=== PATIENT | female | born 1960 | race Caucasian/White ===

== ENCOUNTER 2019-04-15 15:51 | Emergency (ER) | payer OTHER ==
--- NOTE | 2019-04-15 16:42 | XRAY Report ---
Reason: ankle pain Procedure Date: 04/15/2019 Accession Number: [id number] / [id number] Procedure: XR - Ankle 3 View LT CPT Code: FULL RESULT: EXAM: LEFT ANKLE RADIOGRAPHY EXAM DATE: 04/15/2019 04:18 PM. CLINICAL HISTORY: Ankle pain. COMPARISON: None available. TECHNIQUE: 3 views. FINDINGS: Bones: The frontal and oblique views suggest the presence of a linear lucency through the distal aspect of the fibula, but the cortices appear intact. There is a V-shaped linear lucency in the calcaneus. Joints: Normal. No effusion. No subluxations. The ankle mortise is normally aligned. Soft Tissues: There is lateral soft tissue swelling. IMPRESSION: 1. There is lateral soft tissue swelling. 2. There is a linear lucency through the distal fibula, but cortex appears intact, equivocal for fracture. 3. There may be a fracture of the posterior calcaneus. RADIA
--- NOTE | 2019-04-15 17:55 | ED Physician Documentation ---
PD HPI LOWER EXT INJURY - Stated complaint Stated Complaint: LFT ANKLE INJ - Chief complaint Chief Complaint: Trauma Ext - History obtained from History obtained from: Patient - History of Present Illness PD HPI LOW EXT INJURY LOCATION: Left, Ankle, Foot Type of injury: Fall (fell from ladder about 4-5 feet and landed onto left heel/foot directly and hard. Denies pain in knee nor back. Paina nd swelling of ankle.) Timing - onset: Today Timing - details: Abrupt onset, Still present Improved by: No: Rest Worsened by: Moving, Palpating, Other (standing) Associated symptoms: Swelling, Discolored (some bruising color developing around ankle). No: Weakness, Numbness Contributing factors: No: Anticoagulated Similar symptoms before: Has not had sx before Recently seen: Not recently seen Review of Systems Constitutional: denies: Fever Skin: denies: Abrasion (s), Laceration (s) Musculoskeletal: reports: Joint swelling. denies: Neck pain, Back pain Neurologic: denies: Head injury PD PAST MEDICAL HISTORY - Past Medical History Cardiovascular: None Respiratory: None Musculoskeletal: None - Present Medications Home Medications: Ambulatory Orders Medication Instructions Recorded Confirmed Oxycodone HCl/Acetaminophen 1 each PO Q6H PRN #20 tablet 04/15/19 [Percocet 5-325 mg Tablet] - Allergies Allergies/Adverse Reactions: Allergies Allergy/AdvReac Type Severity Reaction Status Date / Time No Known Drug Allergies Allergy Verified 04/15/19 15:58 - Living Situation Living Arrangement: reports: At home PD ED PE NORMAL - Vitals Vital signs reviewed: Yes - General General: Alert and oriented X 3, Well developed/nourished, Other (appears in pain) - Back Back: No spinal TTP - Derm Derm: Normal color, Warm and dry - Extremities Extremities: Other (left ankle and heel with swelling, bruising, and tenderness. Swelling is tight and tender. Toes with sensation, color, cap refill, and movement. ) - Neuro Neuro: Alert and oriented X 3, No motor deficit, No sensory deficit Results - Vitals Vitals: Vital Signs - 24 hr 04/15/19 04/15/19 15:57 19:29 Temperature 37.0 C 36.8 C Heart Rate 92 63 Respiratory 18 18 Rate Blood Pressure 132/76 H 143/80 H O2 Saturation 99 98 Oxygen O2 Source Room air - Rads (name of study) left ankle Radiology: Prelim report reviewed (possible calcaneal fracture), EMP read contemporaneously (calcaneal fracture), See rad report ankle CT Radiology: Prelim report reviewed (calcaneal fracture), See rad report Procedures - Splint (location) left ankle Splint applied by: Tech Type of splint: Fiberglass (well padded), Posterior Other: Patient tolerated well, No complications, Neurovascular intact, Crutches provided PD MEDICAL DECISION MAKING - ED course Complexity details: considered differential (swelling around ankle. Has good sensation/movement and color of toes. ), d/w patient Departure - Departure Disposition: Home, Self Care Clinical Impression: Fall from ladder Qualifiers: Encounter type: initial encounter Qualified Code(s): W11.XXXA - Fall on and from ladder, initial encounter Calcaneal fracture Qualifiers: Encounter type: initial encounter Calcaneus location: body Fracture type: closed Fracture alignment: nondisplaced Laterality: left Qualified Code(s): S92.015A - Nondisplaced fracture of body of left calcaneus, initial encounter for closed fracture Condition: Stable Record reviewed to determine appropriate education?: Yes Instructions: ED Fx Foot Follow-Up: Trace Bernstein MD [Provider Admit Priv/Credential] - Prescriptions: Oxycodone HCl/Acetaminophen [Percocet 5-325 mg Tablet] 1 each PO Q6H PRN #20 tablet PRN Reason: pain Comments: Keep the splint on. Elevate rest and ice the foot and ankle often the next few days. Crutches for nonweightbearing. You can get a knee scooter instead as you desire. Follow-up with orthopedics later this coming week, call Tuesday for an appointment. This will give time for the swelling to go down and they can reevaluate the ankle. Use some anti-inflammatories such as ibuprofen or naproxen twice daily with food. Add Tylenol or Percocet if needed for pains. Discharge Date/Time: 04/15/19 19:48
[2019-04-15] MEDS ORDERED: IBUPROFEN 600 MG TABLET PO STA (18:02)
[2019-04-15] MEDS ORDERED: oxyCODONE 5 MG TABLET PO STA (18:03)
--- NOTE | 2019-04-15 18:44 | CT Report ---
Reason: ankle/calcaneal fracture on xray Procedure Date: 04/15/2019 Accession Number: [id number] / [id number] Procedure: CT - LOWER EXTREMITY WO - LT CPT Code: FULL RESULT: EXAM: LEFT HEEL CT WITHOUT CONTRAST EXAM DATE: 04/15/2019 06:24 PM. CLINICAL HISTORY: Ankle/calcaneal fracture on xray. COMPARISON: ANKLE 3 VIEW LT 04/15/2019 4:09 PM. TECHNIQUE: Thin-section axial images were acquired of the heel without contrast. Post-processing: Coronal and sagittal reformats. Other: None. In accordance with CT protocol optimization, one or more of the following dose reduction techniques were utilized for this exam: automated exposure control, adjustment of mA and/or KV based on patient size, or use of iterative reconstructive technique. FINDINGS: Bones: Nondisplaced interarticular fracture anterior process calcaneus with extension to the calcaneocuboid articulation. Nondisplaced comminuted fracture is noted of the calcaneus body. Negative for fracture depression. Interarticular extension fracture middle and posterior subtalar joint. Nondisplaced fracture horizontal plane is noted of the sustentaculum talus. Bohler's angle is 32 degrees. Maximum offset calcaneus body comminuted fracture on the axial acquisition is 4 mm. There is mild 18 degree lateral angulation of the fracture apex calcaneus body on the axial acquisition (image 120 series 3). Joints: The joint spaces are preserved. No calcified loose bodies. No large effusion. Musculature: Normal. No fatty atrophy. Other: Small fluid collection posterior recess ankle joint. Extensive edema or contusion lateral ankle. Negative for disruption anterior talofibular ligament or calcaneofibular ligament. Peroneal tendons are intact and without impingement. Flexor tendons are intact. Achilles tendon is within normal limits. IMPRESSION: There is extensive comminuted nondisplaced intra-articular fracture of the anterior process calcaneus, sustentaculum talus and calcaneus body with posterior subtalar joint, anterior subtalar joint, middle subtalar joint and calcaneofibular joint involvement. Mild 18 degrees lateral angulation of the fracture apex. Calcaneus body bohler's angle 32 degrees. RADIA
[2019-04-15] MEDS ORDERED: oxyCODONE/ACET 5/325 Prepack 4 PO STA (19:24)
[2019-04-15 19:30] VITALS: BP 143/80
== END 2019-04-15 19:48 | disposition home or self-care (01) ==
LOC: ED 15:51
DX: S92.015A Nondisplaced fracture of body of left calcaneus, initial encounter for closed fracture (principal); S92.025A Nondisplaced fracture of anterior process of left calcaneus, initial encounter for closed fracture; S92.192A Other fracture of left talus, initial encounter for closed fracture; W11.XXXA Fall on and from ladder, initial encounter
CPT/HCPCS: 29515; 73610; 73700; 99283; A9270

== ENCOUNTER 2020-11-13 13:09 | Outpatient (CLI) | payer OTHER ==
--- NOTE | 2020-11-13 17:00 | XRAY Report ---
PROCEDURE: Lumbar Spine 2 View INDICATIONS: LOW BACK PAIN TECHNIQUE: 2 views of the lumbar spine were acquired. COMPARISON: None. FINDINGS: Bones: 5 [id number]-[id number] vertebrae are present. There is normal bony alignment. There are age-indet erminate anterior compression fractures of T12 and L1, most pronounced at T12. Compression fractures involve the superior endplates of both vertebral bodies. Multilevel lumbar spondylitic changes seen t hroughout the imaged spine with mid and lower lumbar facet arthropathy. No suspicious bony lesions. Soft tissues: Overlying bowel gas pattern is normal. No suspicious soft tissue calcifications. IMPRESSION: 1. Age-indeterminate anterior compression fractures of the T12 and L1 vertebral bodies. Consider furt her characterization with CT or MRI. If there is acute pain in the region superimposed on chronic jyoti k pain, MRI evaluation would be preferable to evaluate for marrow edema if treatment by vertebroplast y is to be considered. 2. Multilevel lumbar spondylosis with mid and lower lower lumbar facet arthropathy. Reviewed by: Jacob Proctor MD on 11/13/2020 3:58 PM AKST Approved by: Jacob Proctor MD on 11/13/2020 3:58 PM AKST Station ID: [id number]
== END 2020-11-13 13:10 | disposition home or self-care (01) ==
LOC: DI 13:09
PROVIDERS: ATTEND Physician Assistant Medical
DX: M48.54XA Collapsed vertebra, not elsewhere classified, thoracic region, initial encounter for fracture (principal); M48.56XA Collapsed vertebra, not elsewhere classified, lumbar region, initial encounter for fracture; M47.816 Spondylosis without myelopathy or radiculopathy, lumbar region

== ENCOUNTER 2020-12-01 10:37 | Outpatient (CLI) | payer OTHER ==
--- NOTE | 2020-12-01 12:28 | DEXA Report ---
PROCEDURE: Dexa Spine and/or Hip INDICATIONS: OSTEOPOROSIS TECHNIQUE: Dual energy x-ray absorptiometry (DXA) was performed on a [email or web address] System. Regions measur ed are the AP Spine, femoral neck, and if needed forearm. COMPARISON: None. FINDINGS: Lumbar Spine: Bone Mineral Density 0.788 g/cm/cm,T score -3.4, osteoporosis Left Hip: Bone Mineral Density 0.837 g/cm/cm,T score -1.4, osteopenia Left Femoral Neck: Bone Mineral Density 0.800 g/cm/cm, T score -1.7, osteopenia (T score greater or equal to -1.0: NORMAL) (T score from -1.1 to -2.4: OSTEOPENIA) (T score less than or equal to -2.5 to: OSTEOPOROSIS) Impression: Osteoporosis of the lumbosacral spine overall, with osteopenia at the left femoral neck a nd left hip region overall. Patients with diagnosis of osteoporosis or osteopenia should have regular bone mineral density assess ment. For those eligible for Medicare, routine testing is allowed once every 2 years. Testing frequ ency can be increased for patients who have rapidly progressing disease or for those who are receivin g medical therapy to restore bone mass. Reviewed by: Luis Rocha MD on 12/01/2020 12:27 PM PST Approved by: Luis Rocha MD on 12/01/2020 12:27 PM PST Station ID: [id number]
== END 2020-12-01 10:38 | disposition home or self-care (01) ==
LOC: DI 10:37
PROVIDERS: ATTEND Physician Assistant Medical
DX: M81.0 Age-related osteoporosis without current pathological fracture (principal)

== ENCOUNTER 2022-11-08 17:26 | Emergency (ER) | payer OTHER ==
--- NOTE | 2022-11-08 18:37 | XRAY Report ---
PROCEDURE: Ankle 3 View RT INDICATIONS: Trauma TECHNIQUE: 3 views of the ankle were acquired. COMPARISON: None FINDINGS: Bones: Minimally displaced fracture of the distal lateral malleolus. Ankle mortise appears intact. Pl cora enthesopathy. Suspected additional minimally displaced fracture of the fifth metatarsal base. Soft tissues: Soft tissue swelling is present. IMPRESSION: Minimally displaced distal lateral malleolus fracture. Suspected additional fracture at the fifth met atarsal base. There is soft tissue swelling. Reviewed by: Jack Caba MD on 11/08/2022 6:35 PM PST Approved by: Jack Caba MD on 11/08/2022 6:35 PM PST Station ID: [id number]
[2022-11-08] MEDS ORDERED: KETOROLAC 30 MG/ML VIAL IM STA (19:51)
--- NOTE | 2022-11-08 20:05 | ED Physician Documentation ---
History of Present Illness - Stated complaint Stated Complaint: R ANKLE INJ - Chief complaint Chief Complaint: Trauma Ext - Additonal information Additional information: History obtained from patient. Reliable historian. 62-year-old female presents to the emergency department for evaluation of acute right ankle pain. Reports standing on a stepstool to place blinds this afternoon when she fell off rolling her right ankle. Pain swelling ecchymosis and difficulty bearing weight since. No history of previous injury. Patient did drive here via POV. Patient did not strike her head or lose consciousness. She is not anticoagulated. Denies pain elsewhere. 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, Other - Present Medications Home Medications: Ambulatory Orders Medication Instructions Recorded Confirmed oxyCODONE [Roxicodone] 5 mg PO TID PRN #10 tablet 11/08/22 - Allergies Allergies/Adverse Reactions: Allergies Allergy/AdvReac Type Severity Reaction Status Date / Time No Known Drug Allergies Allergy Verified 11/08/22 17:34 - Social History Does the pt smoke?: No Smoking Status: Never smoker Does the pt drink ETOH?: No Does the pt have substance abuse?: No - Immunizations Immunizations: TDAP >10years/unknown PD ED PE EXPANDED - General General: Alert, No acute distress - Extremities Extremities: Right ankle (Significant swelling tenderness and ecchymosis of the lateral malleolus. Full range of motion is preserved including dorsi and plantar flexion. Mild tenderness at the base of the fifth metatarsal. 2+ DP pulse.) Results - Vitals Vitals: Vital Signs - 24 hr 11/08/22 17:32 Temperature 36.3 C L Heart Rate 100 Respiratory 18 Rate Blood Pressure 143/84 H O2 Saturation 97 Oxygen O2 Source Room air - Rads (name of study) right ankle Radiology: Final report received (Minimally displaced fracture of the distal lateral malleolus. Ankle mortise appears intact. Suspect additional minimally displaced fracture of the fifth metatarsal base) right foot Radiology: EMP read indepedently (Proximal fifth metatarsal tarsal fracture) PD Medical Decision Making - ED course Complexity details: reviewed results, re-evaluated patient, d/w patient ED course: 62-year-old female presents emergency department for evaluation of acute right ankle and foot pain after falling off a stepstool this afternoon. She has significant ecchymosis and tenderness to the lateral malleolus of this foot. There is some minimal tenderness with palpation of the base of the fifth metatarsal. X-ray of the right ankle shows a minimally displaced distal fibular fracture. An x-ray of the foot per my interpretation shows a fracture at the base of the fifth metatarsal. Patient was placed in a 3 sided short leg splint. She does have crutches. She will be referred to orthopedics for follow-up. Post splinting patient is neurovascularly intact. Appropriate splint care and return precautions were discussed. Departure - Departure Disposition: 01 Home, Self Care Clinical Impression: Fracture of right ankle, lateral malleolus Qualifiers: Encounter type: initial encounter Fracture type: closed Fracture alignment: displaced Qualified Code(s): S82.61XA - Displaced fracture of lateral malleolus of right fibula, initial encounter for closed fracture Fracture of fifth metatarsal bone Qualifiers: Encounter type: initial encounter Fracture type: closed Fracture alignment: displaced Laterality: right Qualified Code(s): S92.351A - Displaced fracture of fifth metatarsal bone, right foot, initial encounter for closed fracture Condition: Stable Record reviewed to determine appropriate education?: Yes Follow-Up: Randy Keane MD [Provider Admit Priv/Credential] - Prescriptions: oxyCODONE [Roxicodone] 5 mg PO TID PRN #10 tablet PRN Reason: Pain Comments: Niki campos are seen today in the emergency department after fall at home. Unfortunately the x-rays confirm that you do have a right lateral malleolus fracture as well as a fracture at the base of your fifth metatarsal. We have placed you in temporary fiberglass splinting. This cannot get wet. If it does return to the ER to have it replaced. Long-term management and evaluation of this should be done through orthopedics. Please call your primary care doctor to make a referral for you to orthopedics. I have given you the name of Dr. Keane our local surgeon who should be able to help you manage these fractures. Return to the ER if you develop any fevers, have numbness in your toes or discolored toes or feel that the splint is poorly fitting. I am prescribing a short course of narcotic pain medication for you. These are potentially dangerous and addictive medications that should be used carefully. These medications may constipate you. Take an lhpk-ziq-vpokkgv stool softener (docusate) twice daily with plenty of water while taking these medications. If you go 24 hours without a bowel movement, take hurx-ijn-rpqxkat miralax, per package instructions. Do not drink or drive while taking these medications. If you received narcotic or sedating medications while in the emergency department, do not drive for 24 hours. Store this medication in a safe, secure place and out of reach of children. It is a violation of federal law to give or sell this medication to another person or to use in a manner other than prescribed. The ED will not refill narcotic prescriptions, including prescriptions lost or stolen. To dispose of unwanted medications: 1. [facility] at [address] [facility] in [place] has a medication drop box. They accept prescription medications (in pill form) Tuesday through Tuesday 9:00 a.m. to 5:00 p.m. 2. The [facility] [employer] accepts prescription medications (in pill form only) for disposal year round. Call for more information. 3. Contact the [facility] for the next [facility] sponsored prescription drug collection event. , [phone], or [phone]; Note that many narcotic pain relievers also contain Tylenol/acetaminophen. Please ensure that your total dose of acetaminophen from all sources does not exceed 3 g (3000 mg) per day.
[2022-11-08] MEDS ORDERED: oxyCODONE/ACET 5/325 Prepack 4 PO STA (21:14)
--- NOTE | 2022-11-08 21:16 | XRAY Report ---
PROCEDURE: Foot 3 View RT INDICATIONS: ? fx base 5th metatarsal TECHNIQUE: 3 views of the foot were acquired. COMPARISON: Concurrent study of the right ankle. FINDINGS: Bones: There is a mildly displaced fracture of the base of the fifth metatarsal extending to the tars ometatarsal joint. Remaining visualized osseous structures appear intact. There is mild degeneration of first interphalangeal joint and the interphalangeal joints. No suspicious bony lesions. Soft tissues: There is mild soft tissue swelling lateral to the base of the fifth metatarsal. IMPRESSION: 1. Mildly displaced fracture of the base of the fifth metatarsal. Reviewed by: Sam Contreras MD on 11/08/2022 9:15 PM PST Approved by: Sam Contreras MD on 11/08/2022 9:15 PM PST Station ID: [id number]
[2022-11-08 21:29] VITALS: BP 152/80
== END 2022-11-08 21:29 | disposition home or self-care (01) ==
LOC: ED 17:26
DX: S82.61XA Displaced fracture of lateral malleolus of right fibula, initial encounter for closed fracture (principal); S92.351A Displaced fracture of fifth metatarsal bone, right foot, initial encounter for closed fracture; W17.89XA Other fall from one level to another, initial encounter
CPT/HCPCS: 29515

== ENCOUNTER 2022-11-19 10:43 | Outpatient (CLI) | payer OTHER ==
--- NOTE | 2022-11-19 11:27 | CT Report ---
PROCEDURE: LOWER EXTREMITY WO - RT INDICATIONS: NONDISPLACED FRACTURE OF LATERAL MALLEOLUS OF FIBU TECHNIQUE: Noncontrast 3-mm axial sections acquired from the distal tibial shaft to the talar dome, with coronal and sagittal reformats. For radiation dose reduction, the following was used: automated exposure c ontrol, adjustment of mA and/or kV according to patient size. COMPARISON: 11/18/2021 radiographs, 11/08/2022 FINDINGS: Image quality: Excellent. Bones: Minimally displaced fracture of the distal lateral malleolus again seen. Minimally displaced fracture of the fifth metatarsal base again seen. There is a comminuted fracture of the talus involvi ng the lateral talar process, extending posteriorly to both the subtalar joint and the tibiotalar lucy nt. The ankle mortise remains aligned on these nonweightbearing images. Soft tissues: Soft tissue swelling persists. No suspicious calcifications. Impression: In addition to the previously described fifth metatarsal base and distal lateral malleolu s fractures, there is a comminuted fracture involving the lateral talar process, with extension to th e posterior talus involving both the tibiotalar joint and subtalar joint posterior facet. Additional tiny avulsion fracture of the bifurcate ligament attachment of the anterior calcaneal process, nondis placed. Reviewed by: Jack Caba MD on 11/19/2022 11:26 AM PST Approved by: Jack Caba MD on 11/19/2022 11:26 AM PST Station ID: [id number]
== END 2022-11-19 10:44 | disposition home or self-care (01) ==
LOC: DI 10:43
PROVIDERS: ATTEND Orthopaedic Surgery
DX: S82.61XA Displaced fracture of lateral malleolus of right fibula, initial encounter for closed fracture (principal); S92.351A Displaced fracture of fifth metatarsal bone, right foot, initial encounter for closed fracture; S92.141A Displaced dome fracture of right talus, initial encounter for closed fracture

== ENCOUNTER 2022-12-23 11:05 | Outpatient (CLI) | payer OTHER ==
--- NOTE | 2022-12-23 20:22 | XRAY Report ---
PROCEDURE: Ankle 3 View RT INDICATIONS: RIGHT ANKLE FRACTURE TECHNIQUE: 4 views of the ankle were acquired. COMPARISON: Right ankle CT 11/19/2022. Right ankle radiographs 11/18/2022. FINDINGS: Bones: Fracture at the fifth metatarsal base is less conspicuous. Talus fracture seen on prior CT is less conspicuous. Fracture at the fibular tip is unchanged. No dislocations. Ankle mortise is meir lly aligned. No suspicious bony lesions. Soft tissues: No tibiotalar joint effusion. Achilles tendon appears normal. IMPRESSION: Decreased conspicuity of the fifth metatarsal base and talus fractures. Stable fibular tip fracture. Reviewed by: Facundo Dotson MD on 12/23/2022 8:20 PM PST Approved by: Facundo Dotson MD on 12/23/2022 8:20 PM PST Station ID: [id number]
--- NOTE | 2022-12-23 20:23 | XRAY Report ---
PROCEDURE: Foot 3 View RT INDICATIONS: RIGHT FOOT FRACTURE TECHNIQUE: 3 views of the foot were acquired. COMPARISON: CT of the right ankle 11/19/2022. FINDINGS: Bones: Fifth metatarsal base fracture is subtly seen. Talus fracture is less conspicuous. Fibular fra cture is well seen. No dislocation. No suspicious bony lesions. Soft tissues: No tibiotalar joint effusion. Achilles tendon appears normal. IMPRESSION: Decreased conspicuity of the prior fifth metatarsal base fracture and talus fracture. Fibular tip fra cture is also seen on this exam. Reviewed by: Facundo Dotson MD on 12/23/2022 8:22 PM PST Approved by: Facundo Dotson MD on 12/23/2022 8:22 PM PST Station ID: [id number]
== END 2022-12-23 11:06 | disposition home or self-care (01) ==
LOC: DI.WOS 11:05
PROVIDERS: ATTEND Orthopaedic Surgery
DX: S82.64XD Nondisplaced fracture of lateral malleolus of right fibula, subsequent encounter for closed fracture with routine healing (principal); S92.124 Nondisplaced fracture of body of right talus; S92.351D Displaced fracture of fifth metatarsal bone, right foot, subsequent encounter for fracture with routine healing

== ENCOUNTER 2023-01-24 08:00 | Outpatient (CLI) | payer OTHER ==
--- NOTE | 2023-01-24 13:45 | XRAY Report ---
PROCEDURE: Foot 3 View RT INDICATIONS: RIGHT 5TH MT FRACTURE TECHNIQUE: 3 views of the foot were acquired. COMPARISON: 12/23/2022 FINDINGS: Bones: Unchanged nondisplaced fracture of the fifth metatarsal base. Soft tissues: No tibiotalar joint effusion. Achilles tendon appears normal. IMPRESSION: Unchanged fracture at the fifth metatarsal base. Reviewed by: Craig Mazariegos on 01/24/2023 10:50 AM PDT Approved by: Craig Mazariegos on 01/24/2023 10:50 AM PDT Station ID: [id number]
--- NOTE | 2023-01-24 13:45 | XRAY Report ---
PROCEDURE: Ankle 3 View RT INDICATIONS: RIGHT ANKLE FRACTURE TECHNIQUE: 3 views of the ankle were acquired. COMPARISON: None FINDINGS: Bones: Similar curvilinear calcification along the inferior margin of the lateral malleolus. Ankle m ortise is normally aligned. No suspicious bony lesions. Soft tissues: No tibiotalar joint effusion. Achilles tendon appears normal. IMPRESSION: Similar lateral malleolus fracture. Reviewed by: Craig Mazariegos on 01/24/2023 12:23 PM PDT Approved by: Craig Mazariegos on 01/24/2023 12:23 PM PDT Station ID: [id number]
== END 2023-01-24 23:59 | disposition home or self-care (01) ==
LOC: DI.WOS 08:00
PROVIDERS: ATTEND Orthopaedic Surgery
DX: S92.354A Nondisplaced fracture of fifth metatarsal bone, right foot, initial encounter for closed fracture (principal); S82.61XA Displaced fracture of lateral malleolus of right fibula, initial encounter for closed fracture